=== PATIENT | female | born 1970 | race Caucasian/White ===

== ENCOUNTER 2017-01-02 18:24 | Emergency (ER) | payer SELFPAY ==
[2017-01-02] MEDS ORDERED: DIPH,PERTUS(ACELL)TETVAC-LF 0.5 ML VIAL IM ONE (19:06)
[2017-01-02] MEDS ORDERED: ceFAZolin 1,000 MG VIAL IM STA (19:07)
[2017-01-02] MEDS ORDERED: ceFAZolin 2 GM in SODIUM CHLORIDE 0.9% 100 ML IVPB STA (19:12)
[2017-01-02] MEDS ORDERED: SODIUM CHLORIDE 0.9% 1,000 ML IV SCH (19:15)
--- NOTE | 2017-01-02 19:21 | ED ---
General Adult HPI - General Chief complaint: Wound/Laceration Stated complaint: POSS AMPUTATION, RT PINKIE FINGER Time Seen by Provider: 01/02/17 19:06 Source: patient, RN notes reviewed Mode of arrival: ambulatory Limitations: no limitations - History of Present Illness Initial comments: Chief complaint and history of present illness a 46-year-old female reports that she accidentally cut her right middle finger through the PIP joint. Its attached only by the volar surface. There is also a small laceration on the ulnar aspect of her right middle finger. This is less than 1 cm. Ring was removed. The patient's story of how this occurred mechanically does not seem to add up. But she insists she cut it with a steak knife. This went right through the joint. Blood flow consistent be seen coming from the distal piece of the finger and it does pink nicely when pressed. - Related Data Home Medications Medication Instructions Recorded Confirmed Ibuprofen [Advil] 400 mg PO Q8HR PRN 01/02/17 01/02/17 Allergies Allergy/AdvReac Type Severity Reaction Status Date / Time acetaminophen Allergy Rash/Hives Verified 01/02/17 19:15 Review of Systems ROS Statement: Those systems with pertinent positive or pertinent negative responses have been documented in the HPI. Review of systems. The patient's ear with a laceration nearly cutting her right little finger off. She has soft tissue remaining on the volar surface with what appears to be adequate blood supply to the distal part of the finger. She still has sensation with pinprick to the fingertip. Patient's tetanus shot will be updated. She has ALLERGIES to Tylenol. She'll receive 1 g of IM. She'll be kept nothing by mouth. ROS Other: All systems not noted in ROS Statement are negative. Past Medical History Past Medical History: Asthma, Cancer Additional Past Medical History / Comment(s): pancreatitis, cervial ca, MURMUR History of Any Multi-Drug Resistant Organisms: None Reported Past Surgical History: Tubal Ligation Additional Past Surgical History / Comment(s): LASER SX FOR CERVICAL CANCER AND CONE BX Additional Past Anesthesia/Blood Transfusion Reaction / Comment(s): HAD TO HAVE A BLOOD PATCH DONE AFTER SPINAL Past Psychological History: Anxiety, Panic Disorder, PTSD Additional Psychological History / Comment(s): PT STATED IS AN ALCOHOLIC HAS BEEN TRYIMG TO QUIT HAS'NT DRANK IN WHILE BUT FOUND OUT HER DAUGHTER IS ON HEROIN AAND PT STARTED BINGE DRINK FOR 1 WEEK, STATED LAST DRINK WAS 6PM LAST NIGHT. Smoking Status: Current every day smoker Past Alcohol Use History: Abuse, Daily, Heavy Additional Past Alcohol Use History / Comment(s): STARTED SMOKING AT AGE 13 SMOKES 1 PPD, SMOKING CESSATION BOOKLET GIVEN TO PT. WHEN PT DRANK IT WAS PINT OF VODKA PER DAY Past Drug Use History: Marijuana Additional Drug Use History / Comment(s): OCC USE OF MARIJUANA THINKS SHE SMOKED SOME 2 DAYS AGO. - Past Family History Father Family Medical History: Unable to Obtain Mother Family Medical History: Cancer, Coronary Artery Disease (CAD) Additional Family Medical History / Comment(s): HEART STENTS, FEMAL CANCER STOMACH CANCER General Exam - General Exam Comments Initial Comments: General: The patient is awake and alert, breath alcohol is 0.161. Patient presents with laceration with near amputation of her right middle finger. Vital signs are stable Eye: Pupils are equal, round and reactive to light, extra-ocular movements are intact ; Ears, nose, mouth and throat: There are moist mucous membranes Neck: The neck is supple, No complaint chest pain shortness breath GI/ problems. Extremities; left arm left leg right leg all the normal limits. Examination of the right arm right hand specifically shows a laceration nearly through and through the PIP joint on from the dorsal surface to the volar surface. There is still good blood flow on the remaining dorsal piece of the wound. She does have back bleeding from the distal fragment of the finger. The wound is through the PIP joint. X-ray pending. She does have sensation to the tip with examination from pinpricks. Neurological: Pertinent to the patient's visit she does have sensation to both the ulnar and radial aspect of the dominant right little finger. Skin: Skin is warm and dry and no rashes or lesions are noted. Psychiatric: Cooperative, appropriate mood & affect, normal judgment. Limitations: no limitations Course Vital Signs 01/02/17 18:37 Temperature 98.3 F Pulse Rate 120 H Respiratory 20 Rate Blood Pressure 141/60 O2 Sat by Pulse 97 Oximetry Procedures - Procedures Initial comment: Procedure; the patient had the laceration cleaned with Betadine and rinsed normal saline solution anesthetized 1% Xylocaine. Then the finger was sutured with 7 interrupted mattress style sutures of 4-0 nylon. This was to reapproximate the finger and to help control the bleeding. After the procedure was completed the patient still had good reasonably brisk capillary refill in the distal finger with sensation with needle sticks. Medical Decision Making - Medical Decision Making Medical decision making; the patient is being kept nothing by mouth. She's being hydrated. She's received a tetanus shot. X-ray was done of the finger. And the wound went right through the PIP joint. No evidence of any bony chips for fracture. The patient will be going to [facility] for evaluation and treatment by hand surgeons. I spoke to Dr. Kirit Perry, on-call hand surgeon. He accepts the patient for transfer to the emergency room for further evaluation and management. Disposition Clinical Impression: Near amputation of finger of right hand Disposition: OTHER INSTITUTION NOT DEFINED Condition: Serious - Out of Hospital Transfer - Req. Specs Out of Hospital Transfer - Requested Specifics: Other Emergency Center ( [facility] to be seen by hand surgeon)
--- NOTE | 2017-01-02 19:30 | XR ---
EXAMINATION TYPE: XR finger RT DATE OF EXAM: 01/02/2017 7:26 PM COMPARISON: NONE HISTORY: Laceration fifth digit TECHNIQUE: 3 views right little finger FINDINGS: No radiopaque foreign bodies are evident. There is angulation of the digit. No osseous abno rmality is evident. Correlate for tendon lacerations. Soft tissues are otherwise unremarkable. IMPRESSION: 1. Abnormal orientation of the fifth digit. Underlying osseous structures appear intact.
[2017-01-02 20:18] VITALS: BP 114/70; PULSE 102; RESP 18; TEMP 97.5
== END 2017-01-02 20:16 | disposition short-term general hospital (02) ==
LOC: EC 18:24
DX: S68.126A Partial traumatic metacarpophalangeal amputation of right little finger, initial encounter (principal); S61.212A Laceration without foreign body of right middle finger without damage to nail, initial encounter; W26.0XXA Contact with knife, initial encounter; Z88.6 Allergy status to analgesic agent; Z87.891 Personal history of nicotine dependence; Z23 Encounter for immunization
CPT/HCPCS: 90471; 99285; 12002; 96365; 96361; 73140; 90715; J0690